=== PATIENT | female | born 1990 | race Caucasian/White ===

== ENCOUNTER 2017-07-17 17:23 | Emergency (ER) | payer OTHER ==
[2017-07-17 17:46] VITALS: PULSE 106; RESP 18; TEMP 99.5; O2SAT 100
[2017-07-17 18:46] VITALS: BP 115/75
== END 2017-07-17 18:40 | disposition home or self-care (01) | DRG 153 ==
LOC: ED 17:23
DX: J03.80 Acute tonsillitis due to other specified organisms (principal)
CPT/HCPCS: 99282; 99283